=== PATIENT | female | born 1960 | race African-American/Black ===

== ENCOUNTER 2017-12-14 18:38 | Emergency (ER) | payer OTHER, MEDICARE, SELFPAY ==
[2017-12-14 18:39] VITALS: BP 177/82; PULSE 89; RESP 20; TEMP 36.6; O2SAT 100; BMI 42.4
--- NOTE | 2017-12-14 18:41 | NURSING ---
CALLED FOR EKG PER RN REQUEST, PULLED OLD EKG'S FOR
--- NOTE | 2017-12-14 18:59 | EKG12_ITS ---
Test Reason : CP Blood Pressure : / mmHG Vent. Rate : 081 BPM Atrial Rate : 081 BPM P-R Int : 180 ms QRS Dur : 092 ms QT Int : 372 ms P-R-T Axes : 049 -25 023 degrees QTc Int : 432 ms Normal sinus rhythm Voltage criteria for left ventricular hypertrophy Abnormal ECG Confirmed by HUSAM LOPEZ, ANNIE ([id number]), electronic news gathering editor TOBI GARCIA ([id number]) on 12/17/2017 2:00:31 PM Referred By: Confirmed By:ANNIE WEINER MD
--- NOTE | 2017-12-14 19:00 | RAD_ITS ---
STUDY: X-RAY CHEST REASON FOR EXAM: Female, 57 years old. LEFT SIDE CHEST PAIN AND SOB TODAY, HX ASTHMA TECHNIQUE: Single AP portable view of the chest. COMPARISON: 2.8.17 FINDINGS: The lungs are clear and expanded. There is no demonstrated pleural abnormality. There is mild cardiac enlargement. There is an elevated right hemidiaphragm. Normal mediastinum and leanne. Normal visualized pulmonary arteries. Normal visualized aortic arch and descending thoracic aorta. Normal visualized thoracic spine. Normal visualized ribs, clavicles, and shoulders. There is no demonstrated abnormality of the visualized soft tissue structures of the upper abdomen. RAD/Chest 1 View (Portable) IMPRESSION: Normal x-ray examination of the chest. Electronically Signed: Figueroa Chavarria MD at 19:30 EDT , Service support ,
--- NOTE | 2017-12-14 19:03 | ED.DCSUM_ITS ---
- ER Visit Summary Date of Service: 12/14/17 Chief Complaint: Chest pain History of Present Illness: The patient is a [address] Garcia. She reports that she has chest pain began approximately 15 minutes ago while she was mopping the floor. She describes it as a sharp, pressure that was 10 out of 10 at worst and 6 out of 10 currently. Is worsened by breathing. Is relieved by holding her chest. She does report that it radiates to her left shoulder and down her left arm. This is associated with shortness of breath. She denies any nausea, vomiting, or diaphoresis. No chest pain or change in dyspnea exertion in the past month. No personal history of DVT. No recent travel. No ankle swelling or calf pain. Physical Examination: Vitals: Stable. Afebrile. General: Well-nourished and well-developed. Head: Normocephalic atraumatic. Neck: Supple, no lymphadenopathy. No JVD. Nontender. Cardiovascular: Regular rate and rhythm. No murmurs. Respiratory: No respiratory distress. Clear to auscultation bilaterally. Abdominal: Soft, nontender, nondistended, normal bowel sounds. No guarding, rebound, or peritoneal signs. Back: Nontender. Extremities: Nontender, no edema. Skin: Normal color, no rash. Neurologic: Alert and oriented ?3. Cranial nerves II through XII are intact. Normal strength and sensation. Psych: Normal affect. Test Results: EKG is sinus at 81 and is unchanged from November 2014. Repeat EKG is unchanged. Neither of these is changed from November 2014. Initial troponin is negative. Repeat troponin is negative. Chem-7 is more for glucose 107. CBC is remarkable for an hemoglobin of 11.7, 43 segmented neutrophils, and 48 lymphocytes. Chest x-ray is normal. Emergency Department Course and Treatment: Patient was treated with aspirin. She refused pain medications. Treatment Plan: I discussed the patient treatment options. She does not want to be admitted to the hospital for a stress test. She has now had 4 hours of constant pain with no change in her EKG or her cardiac enzymes. I did discuss this time I do not have an explanation for her chest pain. She will be discharged instructions to follow-up with Dr. Garcia as soon as possible. Return to the emergency department for worsening or change in the character of her chest pain, if she changes her mind, or for any other concerns. Disposition: To home in improved and stable condition. Impression: 1. Atypical chest pain. 2. ZAY score of 1. This note was generated with [employer] dictation software. It may contain incorrect words, spelling, and punctuation that were not noted in review of the chart prior to signing ED Disposition - Plan for ED Patient: Disposition: Home or Assisted Living Chief Complaint: Chest Pain Instructions: ED Chest Pain Atypical Unkn Cause Referrals: Prema Garcia MD [Primary Care Provider] - As soon as possible
[2017-12-14 19:08] LABS: Absolute Lymphocyte Count 4.66 X10^3/ul (0.83-4.51); Absolute Neutrophil Count 4.2 X10^3/uL (2.0-7.7); Basophil# 0.03 X10^3/uL; Basophil% 0.3 % (0-1); Eosinophil# 0.24 X10^3/uL; Eosinophils% 2.5 % (0-5); Hematocrit 37.6 % (37-47); Hemoglobin 11.7 g/dl (12.0-15.0); Lymphocyte # 4.66 X10^3/ul (4.0); Lymphocyte % 48.2 % (19-41); Mean Corp Hgb Conc 31.1 g/gl (32-36); Mean Corpuscular Hgb 26.1 pg (27.0-32.0); Mean Corpuscular Volume 83.9 fL (81-99); Mean Platelet Vol. 10.5 fl (6.2-12.0); Monocyte# 0.56 X10^3/uL; Monocyte% 5.8 % (0-10); Neutrophil # 4.15 X10^3/uL (2.7-7.7); Platelet Count 224 K/mm3 (150-450); RBC Distribution Width CV 14.4 % (11.6-14.6); RBC Distribution Width SD 44.3 fl (35.1-43.9); Red Blood Count 4.48 M/mm3 (4.2-5.4); White Blood Count 9.7 K/mm3 (4.4-11.0)
[2017-12-14 19:18] LABS: POSITIVE COUNT NO; POSITIVE DIFFERENTIAL NO; POSITIVE MORPHOLOGY NO
[2017-12-14 19:20] LABS: Anion Gap 10 (5-15); BUN 17 mg/dL (7-18); BUN/Creat Ratio 18.4 RATIO (10-20); Calcium,Total 9.7 mg/dL (8.5-10.1); Chloride 106 mmol/L (98-107); Creatinine, Serum 0.92 mg/dL (0.55-1.02); EST Glomerular Filtration Rate 67 mL/min (>60); Est Glom Filt Rate - Afr Amer 80 mL/min (>60); Estimated Creatinine Clearance 63.16 ml/min; Glucose 107 mg/dL (74-106); Potassium 3.6 mmol/L (3.5-5.1); Sodium Level 144 mmol/L (136-145)
[2017-12-14] MEDS: Aspirin 81 MG TAB.CHEW 324 MG PO (19:41)
--- NOTE | 2017-12-14 19:49 | EKG12_ITS ---
Test Reason : REPEAT Blood Pressure : / mmHG Vent. Rate : 064 BPM Atrial Rate : 064 BPM P-R Int : 204 ms QRS Dur : 094 ms QT Int : 384 ms P-R-T Axes : 008 -27 -04 degrees QTc Int : 396 ms Normal sinus rhythm Voltage criteria for left ventricular hypertrophy Abnormal ECG Confirmed by HUSAM LOPEZ, ANNIE ([id number]), online content editor TOBI GARCIA ([id number]) on 12/17/2017 2:04:10 PM Referred By: IDA Confirmed By:ANNIE WEINER MD
[2017-12-14] MEDS: 0.9% Normal Saline 1,000 ML 150 ML IV (19:52)
[2017-12-14 19:54] VITALS: BP 205/93; PULSE 70; RESP 18; O2SAT 97
[2017-12-14 20:00] VITALS: BP 198/97; PULSE 68; RESP 16; O2SAT 100
[2017-12-14 21:00] VITALS: BP 195/98; PULSE 73; RESP 16; O2SAT 98
[2017-12-14 22:00] VITALS: BP 143/71; PULSE 69; RESP 14; O2SAT 95
[2017-12-14 22:52] VITALS: BP 143/71; PULSE 83; RESP 18; O2SAT 98
== END 2017-12-14 22:53 | disposition home or self-care (01) ==
PROVIDERS: Emergency Provider Emergency Medicine; Family Provider Internal Medicine; PCP Internal Medicine
DX: R07.89 Other chest pain (principal); R06.00 Dyspnea, unspecified; E11.9 Type 2 diabetes mellitus without complications; I10 Essential (primary) hypertension; E78.00 Pure hypercholesterolemia, unspecified; Z87.19 Personal history of other diseases of the digestive system; Z90.710 Acquired absence of both cervix and uterus; Z87.891 Personal history of nicotine dependence; Z79.84 Long term (current) use of oral hypoglycemic drugs; Z79.82 Long term (current) use of aspirin; Z79.899 Other long term (current) drug therapy
CPT/HCPCS: 71045; 80048; 84484; 85025; 93005; 96360; 96361; 99284; J7030

== ENCOUNTER 2023-03-10 19:56 | Emergency (ER) | payer MEDICARE, SELFPAY ==
[2023-03-10 19:57] VITALS: BP 143/99; PULSE 71; RESP 17; TEMP 36.6; O2SAT 98; BMI 41.0
--- NOTE | 2023-03-10 20:26 | EDS_ITS ---
HPI History of Present Illness Chief Complaint: Other, Pain/Inj Detail of Chief Complaint: Left ankle and jaw swelling. Informant: patient Onset/Context/Timing Onset: Today and Hours Context: Gradual Onset Timing: Continuous Current Severity: Mild Maximum Severity: Mild Narrative Narrative: 62-year-old diabetic female with sarcoidosis. She was eating pizza and was feeling fine. No recent illness. No fever. No dental pain. Started having swelling of the left side of her face along the angle of her jaw. No prior history. No trauma. Has not recently been ill. Prior similar symptoms: No Recent Illness/Hospitalization: No PFSH PFS Medical History Diabetes Former smoker GERD (gastroesophageal reflux disease) Newly diagnosed type 2 diabetes mellitus Home Medications losartan 50 mg-hydrochlorothiazide 12.5 mg tablet 1 tab PO DAILY 09/26/16 [History Last Taken 09/26/16 11:00] simvastatin 10 mg tablet (Zocor) 20 mg PO QHS 09/26/16 [History Last Taken Unknown] acetaminophen 325 mg tablet (Tylenol) 325 mg PO Q4H PRN PRN Fever 09/27/16 [History Last Taken Unknown] acyclovir 400 mg tablet (Zovirax) 400 mg PO BID 09/27/16 [History Last Taken Unknown] albuterol sulfate 90 mcg/actuation aerosol inhaler (Ventolin HFA) 2 puff inhalation Q4H PRN PRN Asthma 09/27/16 [History Last Taken 09/26/16] fluticasone propionate 50 mcg/actuation nasal spray,suspension 2 spray DAILY 09/27/16 [History Last Taken Unknown] multivitamin with folic acid 400 mcg tablet (Thera) 1 tab PO DAILY 09/27/16 [History Last Taken Unknown] Symbicort 160-4.5 Mcg Inhaler 12/14/17 [History Last Taken Unknown] aspirin 81 mg chewable tablet 81 mg PO DAILY@0800 12/14/17 [History Last Taken Unknown] metformin 500 mg tablet 1,000 mg PO BIDCM 12/14/17 [History Last Taken Unknown] amlodipine 2.5 mg tablet 2.5 mg PO DAILY 03/10/23 [History Last Taken 03/10/23] cetirizine 10 mg tablet 10 mg PO DAILY PRN ALLERGIES 03/10/23 [History Last Taken Unknown] Allergy/AdvReac Type Severity Reaction Status Date / Time No Known Allergies Allergy Verified 12/14/17 18:42 Social History Smoking Status: Former smoker ROS ROS ED ROS Narrative No recent illness. Review of Systems ROS Unobtainable: Denies due to encephalopathy Constitutional Constitutional ED: Denies chills or fever(s) Eyes Eyes: Denies blurry vision ENT ENT ED: Denies ear pain Cardiovascular Cardiovascular: Denies chest pain Respiratory/Chest Respiratory/Chest: Denies cough or dyspnea Gastrointestinal Gastrointestinal: Denies abdominal pain Genitourinary Genitourinary ED: Denies dysuria or hematuria Musculoskeletal Musculoskeletal: Denies arthralgias Integumentary Denies abscess Neurologic Neurologic: Denies headache(s) Psychiatric Psychiatric: Denies anxiety Endocrine Endocrinology: Denies cold intolerance Hematologic/Lymphatic Hematologic/Lymphatic: Reports none Allergic/Immunologic Allergic/Immunologic ED: Denies mouth swelling, tongue swelling or urticaria EXAM Physical Exam Narrative Exam Narrative: 62-year-old female no acute distress. Vital signs are stable and afebrile. H EENT exam posterior pharynx normal. Both TMs are normal. Left side of face or swelling at the angle of the jaw consistent with parotitis. No significant tenderness. No redness or warmth. Dentition looks good. There is no obvious dental infection or trauma. No trouble opening and closing her mouth. No trismus. Neck is nontender no lymphadenopathy. Lungs are clear. Heart regular rhythm no murmurs. Abdomen soft. Patient moving all 4 extremities. Neurologically she is awake alert. Const Vital Signs: 03/10/23 19:57 Temperature 97.8 F Temperature Source Temporal Pulse Rate 71 Respiratory Rate 17 Blood Pressure 143/99 H Blood Pressure Mean 113 Pulse Ox 98 Oxygen Delivery Method Room Air Positive well nourished and well developed; Negative for cachectic, contractures or unkempt Constitutional Narrative: Mild swelling minimal Tenderness left jaw angle consistent with inflammation of the parotid gland. No erythema or warmth. Consistent with acute parotiditis. General Appearance ED: well developed and NAD; Negative for unkempt, cachectic, contractures, cyanotic, diaphoretic or pallor Nutritional Appearance: Negative for cachectic HEENT Reports moist mucous membranes Negative for trauma or tenderness Eyes PERRL and EOMs intact bilaterally General Eye ED: Negative for pale conjunctiva or scleral icterus Neck no lymphadenopathy, supple and no JVD General: Negative for tenderness Lymph Lymphatic: Negative for other Chest Wall inspection of chest normal and palpation of chest normal Chest: Negative for other Resp normal respiratory effort and clear to auscultation bilaterally Effort and Inspection: Negative for retractions Auscultation: Negative for rales, rhonchi or wheezes Cardio regular rate, regular rhythm, S1 normal heart sound, S2 normal heart sound and no murmurs GI normal to inspection, nondistended, normoactive bowel sounds, non-tender, non- distended and no masses Auscultation: normoactive bowel sounds Palpation: soft; Negative for tender or guarding Back/Spine no CVA tenderness Extremity normal to inspection General Extremety ED: Negative for edema or tenderness General Extremity: Negative for edema Neuro oriented x3 and CN's II-XII intact bilaterally Sensorium / Orientation: alert; Negative for orientation impaired, lethargic or stuporous Motor Exam: strength 5/5 throughout Psych mental status grossly normal Appearance: Negative for unkempt Attitude: No agitated Mood & Affect: Negative for depressed, anxious or tearful Skin no rashes or lesions noted, no wounds and skin turgor normal General Skin Exam: elasticity normal; Negative for jaundice or pallor Lesions: No lesion noted Rashes: No rashes noted Trauma: Negative for abrasion Wounds: Negative for wounds noted MDM MDM MDM Narrative Medical decision making narrative: 62-year-old diabetic with acute parotid and inflammation. Hard candy. Tylenol Motrin for pain. Follow-up with not improving. Currently no signs of infection. No fever. Not significantly tender or warm. Does not need antibiotics. If not improving follow-up with either primary care physician or ENT. Discharge Plan Triage Chief Complaint: Other, Pain/Inj ED Provider: Avinash Garcia Dx/Rx/DC Orders Clinical Impression: Acute parotitis Instructions: ED Salivary Gland Swelling ... Prescriptions: No Action simvastatin [Zocor] 10 MG tablet 20 mg PO QHS Patient Comments: HIGH CHOLESTEROL losartan-hydrochlorothiazide 1 EACH tablet 1 tab PO DAILY Patient Comments: BP albuterol sulfate [Ventolin HFA] 1 INHALER inhaler 2 puff inhalation Q4H PRN PRN (Reason: Asthma) acetaminophen [Tylenol] 325 MG tablet 325 mg PO Q4H PRN PRN (Reason: Fever) acyclovir [Zovirax] 400 MG tablet 400 mg PO BID fluticasone propionate 1 SPRAY spray,suspension 2 spray NASAL DAILY multivitamin with folic acid [Thera] 1 TABLET tablet 1 tab PO DAILY aspirin 81 MG tablet,chewable 81 mg PO DAILY@0800 Symbicort 160-4.5 Mcg Inhaler Patient Comments: UNSURE ON DOSE metformin 500 MG tablet 1,000 mg PO BIDCM Primary Care Provider: Prema Garcia Referrals: Prema Garcia MD [Primary Care Provider] - 3-5 Days if not improving Zachary Brandon MD [Med Staff - Active Staff] - 1 Week if not improving Activity Restrictions/Additional Instructions: You have swelling of your left parotid gland which is a salivary gland. Hard candy to promote salivation. This should get better. These can get infected. If it is getting a lot worse or you develop a fever you need to follow-up to have it further evaluated. Sometimes this develops an infection or there is a stone blocking the duct. Motrin and Tylenol for pain. Disposition Disposition: Home, Self Care
[2023-03-10 20:29] VITALS: BP 140/88; PULSE 79; RESP 16; O2SAT 97
[2023-03-10 20:33] VITALS: BP 140/88; PULSE 79; RESP 16; O2SAT 97
== END 2023-03-10 20:37 | disposition home or self-care (01) ==
PROVIDERS: Emergency Provider Emergency Medicine; PCP Internal Medicine; Visit Provider Emergency Medicine
DX: K11.20 Sialoadenitis, unspecified (principal); E11.9 Type 2 diabetes mellitus without complications; D86.9 Sarcoidosis, unspecified; Z87.891 Personal history of nicotine dependence; Z79.82 Long term (current) use of aspirin; Z79.84 Long term (current) use of oral hypoglycemic drugs; Z79.51 Long term (current) use of inhaled steroids
CPT/HCPCS: 99282